=== PATIENT | female | born 1985 | race Caucasian/White ===

== ENCOUNTER 2022-02-05 16:10 | Emergency (ER) | payer OTHER ==
[~2022-02-05] VITALS: Ht 172.7 cm; Wt 131.5 kg
[2022-02-05 16:18] VITALS: BP_SYST 157
[2022-02-05 17:00] VITALS: BP_SYST 157
== END 2022-02-05 17:00 | disposition left against medical advice (07) ==
LOC: SED 16:10
DX: G43.909 Migraine, unspecified, not intractable, without status migrainosus (principal); Z53.21 Procedure and treatment not carried out due to patient leaving prior to being seen by health care provider
CPT/HCPCS: 99281